=== PATIENT | female | born 1965 | race Hispanic/Latino ===

== ENCOUNTER → 2019-07-20 | Outpatient (CLI) | payer OTHER | END | disposition home or self-care (01) | LOC: RAH 11:21 | PROVIDERS: ATTEND Internal Medicine Geriatric Medicine | DX: Z13.6 Encounter for screening for cardiovascular disorders (principal) | CPT/HCPCS: 75571 ==

== ENCOUNTER 2023-03-13 06:06 | Day surgery (SDC) | payer OTHER, MEDICAID ==
[~2023-03-13] VITALS: Ht 152.4 cm; Wt 49.9 kg
[~2023-03-13 06:06] MED LIST: ALPR2TAB2 PO; CREON12 PO; DICY20TA3 PO; FIORIT PO; HYDR5TAB14 PO; LACO100T2 PO; MELO5CAP3 PO; MIDO5TAB4 PO; OMEP20TA2 PO; OXCA300T28 PO; OXYC15TA2 PO; PANT40TA54 PO; PREG75 PO; TRAZ-185 PO; URSO300C4 PO
[2023-03-13 06:43] VITALS: BP 99/68
[2023-03-13] MEDS ORDERED: 0.9%NACL 1000ML 1,000 ML IV ONE (08:05)
[2023-03-13] MEDS ORDERED: PROPOFOL 10 MG/ML 20ML VIAL IV ONE (08:24)
== END 2023-03-13 09:13 | disposition home or self-care (01) ==
LOC: DAH 06:06 → ENDO 06:06
PROVIDERS: ATTEND Surgery
DX: R13.10 Dysphagia, unspecified (principal); Z20.822 Contact with and (suspected) exposure to COVID-19; K91.1 Postgastric surgery syndromes; K29.70 Gastritis, unspecified, without bleeding; K22.89 Other specified disease of esophagus; D50.9 Iron deficiency anemia, unspecified; R19.7 Diarrhea, unspecified; K86.1 Other chronic pancreatitis; K30 Functional dyspepsia; R63.4 Abnormal weight loss; I25.10 Atherosclerotic heart disease of native coronary artery without angina pectoris; F41.9 Anxiety disorder, unspecified; F32.A Depression, unspecified; M19.90 Unspecified osteoarthritis, unspecified site; I25.2 Old myocardial infarction; F17.200 Nicotine dependence, unspecified, uncomplicated; Z86.73 Personal history of transient ischemic attack (TIA), and cerebral infarction without residual deficits; Z79.899 Other long term (current) drug therapy; Z98.84 Bariatric surgery status; Z88.6 Allergy status to analgesic agent; Z88.8 Allergy status to other drugs, medicaments and biological substances; Z88.3 Allergy status to other anti-infective agents; Z90.49 Acquired absence of other specified parts of digestive tract; Z68.20 Body mass index [BMI] 20.0-20.9, adult
CPT/HCPCS: 87426; 43239; 82948; 88305 ×4; J7030 ×2; J2704; A4620; A4215 ×3; A4223; A4657 ×2; A4222; A4221; A4663; A4606

== ENCOUNTER 2023-09-05 06:39 | Day surgery (SDC) | payer OTHER, MEDICAID ==
[2023-07-26 10:16] VITALS: BP 96/53; PULSE 18; RESP 18
[2023-09-03 11:39] VITALS: BP 110/60; PULSE 66; RESP 17
[2023-09-05] VITALS (11 sets, daily range): BP systolic 85–106; BP diastolic 54–64; PULSE 61–72; RESP 12–15
[~2023-09-05] VITALS: Ht 152.4 cm; Wt 49.9 kg
[~2023-09-05 06:39] MED LIST changes: +HYDR-4419 PO
[2023-09-05] MEDS ORDERED: PROPOFOL 10 MG/ML 20ML VIAL IV ONE ×2 (08:53→09:06)
[2023-09-05] MEDS ORDERED: LIDOCAINE PF 100MG/5ML (2%) SYRINGE 5ML ONE (08:53)
== END 2023-09-05 10:25 | disposition home or self-care (01) ==
LOC: DAH 06:39 → ENDO 06:39
PROVIDERS: ATTEND Surgery
DX: R10.13 Epigastric pain (principal); R13.10 Dysphagia, unspecified; K29.50 Unspecified chronic gastritis without bleeding; K31.89 Other diseases of stomach and duodenum; K22.89 Other specified disease of esophagus; K91.1 Postgastric surgery syndromes; K90.3 Pancreatic steatorrhea; D50.9 Iron deficiency anemia, unspecified; F41.9 Anxiety disorder, unspecified; F32.A Depression, unspecified; R56.9 Unspecified convulsions; E64.0 Sequelae of protein-calorie malnutrition; M19.90 Unspecified osteoarthritis, unspecified site; F17.210 Nicotine dependence, cigarettes, uncomplicated; Z79.01 Long term (current) use of anticoagulants; Z79.899 Other long term (current) drug therapy; Z90.49 Acquired absence of other specified parts of digestive tract; Z98.891 History of uterine scar from previous surgery; Z86.73 Personal history of transient ischemic attack (TIA), and cerebral infarction without residual deficits; Z90.710 Acquired absence of both cervix and uterus; Z98.890 Other specified postprocedural states; Z98.84 Bariatric surgery status
CPT/HCPCS: 43245; 82948 ×2; 43239; J2001; J2704 ×2; A4620; A4215 ×2; A4223; A7002; A4222; A4221; A4663; J7030; A4606; J3490

== ENCOUNTER 2025-08-10 19:00 | Emergency (ER) | payer OTHER, MEDICAID ==
[~2025-08-10] VITALS: Ht 162.6 cm; Wt 65.8 kg
--- NOTE | 2025-08-10 19:26 | ERN ---
ED Note History of Present Illness Stated Complaint: C/O SEIZURE Chief Complaint: Seizure Time Seen by MD: 19:04 Dictation: This is a 60-year-old female who was brought by EMS for an active seizure activity. Patients spouse stated that she has had a history of seizures since age 8 and patient's mother chose to stop all her seizure medications. She was seizure free up to a certain point but then seizures returned somewhere around 2003 this was a time when they were living in [facility]. Patient and spouse moved to [place] to be closer to the patient's parents about 4 years ago. Patient recent last seizure was 2 months ago at home. She [facility] and is currently on Vimpat and oxcarbazepine. The denied any noncompliance. No history of any illicit drugs. No history of fever chills or rigors. Or primary care physician today and received a shot of pain medication. Eventually developed back to back seizures. Upon arrival to the ER patient was having seizures lasting about a minute to 2 minutes. Stat Valium has been given. Keppra 1500 mg IV loading done was marked. Who is recovered quite quickly each time and was refusing intubation initially. After 8 or 9 seizures, I had a very direct conversation with the patient and her spouse and explained to them that there is a very high-risk of sudden respiratory arrest especially with the need for frequent benzodiazepines. He could also result in cardiac arrest. Both of them at that time decided to he has been go ahead with a intubation. Patient was successfully intubated and placed on mechanical ventilator. Please see the procedure note written separately Patient was extremely difficult IV stick and right internal jugular triple-lumen catheter was also placed emergently. Temperature 97.5 pulse 101 respirations 18 blood pressure 122/71 with a pulse oximetry of 100% on room air prior to intubation Her chronic medical problems include history of seizures, history of bariatric surgery in 2013 with a mesh placement and multiple postoperative complications and chronic pain, COPD-patient is an active smoker of cigarettes and uses an inhaler Allergies: Coded Allergies: No Known Drug Allergies (Unverified Allergy, Unknown, 08/10/25) Past Medical History Past Medical History: Hypotension (On midodrine and a vagal stimulator), Seizure Surgical History: Other, Bariatric Surgery Surgical History Other: LEFT-SIDED VAGAL STIMULATOR Family History: Negative Social History: Smokers History: Not Applicable RN Note Reviewed/Agreed w/PFSH: Yes Review of System Dictation Constitutional: Negative for fever,chills, and weight loss Eyes: Negative for injury, pain,redness, and discharge ENT: Negative for injury,pain or swelling Cardiovascular: Negative for chest pain, palpitations, and edema Respiratory: Negative for shortness of breath, cough, and wheezing, Abdomen/GI: Negative for abdominal pain, nausea, vomiting, diarrhea, and constipation Back: Negative for injury and pain : Negative for injury, bleeding and discharge MS/Extremity: Negative for injury and deformity Skin: Negative for rash, and discoloration Neuro: Negative for headache, weakness, numbness, tingling, and positive for back to back seizures Psych: Negative for suicide ideation, homicidal ideation, and hallucinations Initial Vital Sign VS Vital Signs Date Time Temp Pulse Resp B/P (MAP) Pulse Ox O2 Delivery O2 Flow Rate FiO2 08/10/25 19:25 97.5 101 18 122/71 100 Nasal Cannula 10.0 08/10/25 19:37 100 Physical Exam Dictation General: awake, alert, moaning but answering questions appropriately in between the seizures Head/Face: Normocephalic, atraumatic Eyes: PERRL, EOMI, vision at baseline ENT: oral cavity clear, TMs clear, no signs of infection Neck: Trachea midline, supple, no nuchal rigidity Cardiovascular: RRR, normal S1/S2, No MRGs, no JVD Respiratory: CTAB, no respiratory distress, No rales or wheezes Abdomen: Soft, non-tender, non-distended, normal bowel sounds, no guarding or rebound. Skin: Warm, dry, normal turgor, no rash MS/Extremity: Pulses equal, no cyanosis, neurovascular intact, FROM Neuro: COAx4, GCS 15, strength 5/5, CN 2-12 intact, normal cerebellar exam, Extremities-trace edema without any palpable cords, Homans sign is negative Results (Laboratory/Radiology) Laboratory/Radiology Laboratory Tests Test 08/10/25 20:18 08/10/25 20:25 08/10/25 21:03 Blood Gas Specimen Type Arterial Arterial Blood pH 7.475 (7.350-7.450) Arterial Blood Partial Pressure CO2 27 mmHg (32-45) L Arterial Blood Partial Pressure O2 > 500.0 mmHg (83.0-108.0) Arterial Blood HCO3 19.1 mmol/L (21.0-28.0) L Arterial Blood Oxygen Saturation 99.1 % (94.0-98.0) H Arterial Blood Base Excess -3.1 mmol/L (-2.0-3.0) L Hemoglobin (Blood Gas) 12.5 g/dL (12.0-16.0) Sodium (Blood Gas) 141 MMOL/L (136-145) Bedside Potassium (Blood Gas) 3.4 MMOL/L (3.4-4.5) Bedside Chloride (Blood Gas) 108 MMOL/L (98-107) H Bedside Glucose (Blood Gas) 84 MG/DL (65-95) Bedside Ionized Calcium (Blood Gas) 1.10 MMOL/L (1.15-1.33) L Bedside Lactic Acid (Blood Gas) 3.73 MMOL/L (0.36-0.75) *H Blood Gas Temperature 37.0 CELSIUS (35.5-37.0) Blood Gas Respiration Rate 16.0 min. Blood Gas Vent Mode AC (ROOM AIR) FiO2 100.0 % Blood Gas Tidal Volume 450 ml Blood Gas PEEP 5 cm H2O Blood Gas Specimen Comment RR White Blood Count 5.6 K/uL (4.8-10.8) Red Blood Count 3.52 MIL/uL (4.00-5.50) L Hemoglobin 11.9 g/dL (12.0-16.0) L Hematocrit 35.2 % (36-48) L Mean Corpuscular Volume 100.0 fL (79-99) H Mean Corpuscular Hemoglobin 33.8 pg (27.0-33.0) H Mean Corpuscular Hemoglobin Concent 33.8 g/dL (32.0-36.0) Red Cell Distribution Width 12.0 % (11.0-15.5) Platelet Count 188 K/uL (130-400) Mean Platelet Volume 9.4 fL (7.5-10.5) Immature Granulocyte % (Auto) 0.2 % (0-1) Neutrophils (%) (Auto) 49.6 % (40.0-77.0) Lymphocytes (%) (Auto) 39.5 % (21.0-51.0) Monocytes (%) (Auto) 9.8 % (3.0-13.0) Eosinophils (%) (Auto) 0.5 % (0.0-8.0) Basophils (%) (Auto) 0.4 % (0.0-5.0) Neutrophils # (Auto) 2.8 K/uL (1.8-7.7) Lymphocytes # (Auto) 2.2 K/uL (1.0-4.8) Monocytes # (Auto) 0.6 K/uL (0.1-1.0) Eosinophils # (Auto) 0.03 K/uL (0.00-0.70) Basophils # (Auto) 0.02 K/uL (0.00-0.20) Absolute Immature Granulocyte (auto 0.01 K/uL (0-1) Nucleated Red Blood Cells 0.0 % (0.0-0.19) Prothrombin Time 11.6 SEC (9.6-11.6) Prothromb Time International Ratio 1.11 (0.85-1.15) Activated Partial Thromboplast Time 25.9 SEC (26.3-35.5) L Sodium Level 144 mmol/L (136-145) Potassium Level 3.2 mmol/L (3.5-5.1) L Chloride Level 107 mmol/L (101-111) Carbon Dioxide Level 22 mmol/L (21-32) Blood Urea Nitrogen 16 mg/dL (7-18) Creatinine 0.8 mg/dL (0.5-1.0) Glomerular Filtration Rate Calc 84 mL/min (>90) Random Glucose 80 mg/dL (70-105) Whole Blood Ketones Quantitative < 0.1 mmol/L (0.0-0.6) Total Calcium 8.2 mg/dL (8.5-10.1) L Total Bilirubin 0.3 mg/dL (0.2-1.0) Aspartate Amino Transf (AST/SGOT) 34 U/L (10-37) Alanine Aminotransferase (ALT/SGPT) 35 U/L (12-78) Alkaline Phosphatase 102 U/L (50-136) Ammonia < 10 umol/L (11-32) L Total Creatine Kinase 156 U/L (21-232) Troponin I High Sensitivity 5.0 ng/L (4-50) Total Protein 6.2 g/dL (6.0-8.3) Albumin 3.3 g/dL (3.5-5.0) L Acetaminophen Level < 1 mcg/mL (10-30) L Serum Alcohol < 3 mg/dL (0-10) Urine Color YELLOW (YELLOW) Urine Appearance CLEAR (CLEAR) Urine pH 5.5 (5.0-8.0) Urine Specific [place] 1.016 (1.001-1.031) Urine Protein NEGATIVE mg/dL (NEGATIVE) Urine Glucose (UA) NEGATIVE mg/dL (NEGATIVE) Urine Ketones NEGATIVE mg/dL (NEGATIVE) Urine Occult Blood NEGATIVE (NEGATIVE) Urine Nitrate NEGATIVE (NEGATIVE) Urine Bilirubin NEGATIVE mg/dL (NEGATIVE) Urine Urobilinogen 0.2 mg/dL (0.2-1.0) Urine Leukocyte Esterase NEGATIVE Anjana/uL Labs Reviewed?: Yes EKG Comment: 12 lead EKG done on 08/10/2025 at 8:22 p.m. showed a heart rate of 91, NV interval 127, QRS duration 86, QT/QTC 379/465 Impression normal sinus rhythm with nonspecific ST-T changes no acute ST-T elevations or deep ST depressions noted. EKG rhythm strip shows a normal sinus rhythm with a nonspecific ST-T changes Interpreted by ER MD Dr. Grimes ED Course ED Course Orders Procedure Category Date Status Time Levetiracetam 500 PHA 08/10/25 Complete Mg/5 Ml Sd V (Keppra 5 19:14 Diazepam 5 Mg/Ml 2 Ml PHA 08/10/25 Complete Syg (Valium 5 Mg/M 19:14 Chest 1vw RAD 08/10/25 Resulted 19:17 Cbc With Differential LAB 08/10/25 Complete 19:20 Comprehensive LAB 08/10/25 Complete Metabolic Panel 19:20 Pt And Ptt LAB 08/10/25 Complete 19:20 Ct Head/Brain W/O CT 08/10/25 Resulted Contrast 19:20 Diazepam 5 Mg/Ml 2 Ml PHA 08/10/25 Complete Syg (Valium 5 Mg/M 19:30 Levetiracetam 500 PHA 08/10/25 Complete Mg/5 Ml Sd V (Keppra 5 19:30 Arterial Blood Gas RT 08/10/25 Transmitted 19:22 Ketone Blood LAB 08/10/25 Complete Quantitative 19:22 Urinalysis Profile LAB 08/10/25 Complete 19:22 12 Lead Ekg Tracing- EKG 08/10/25 Complete Technical 19:24 Levetiracetam 500 PHA 08/10/25 Complete Mg/5 Ml Sd V (Keppra 5 19:30 Fentanyl 1000mcg+Ns PHA 08/10/25 Complete 100ml (Fentanyl 1000 19:51 Propofol 1000 Mg/100 PHA 08/10/25 Complete Ml (Diprivan 1000mg 19:52 Arterial Blood Gas LAB 08/10/25 Complete Arterial + 20:18 Acetaminophen LAB 08/10/25 Complete 19:20 Alcohol, Blood LAB 08/10/25 Complete 19:20 Ammonia LAB 08/10/25 Complete 19:20 Cardiac Panel LAB 08/10/25 Complete 19:20 Ventilator Settings RT 08/10/25 Transmitted 21:58 Arterial Blood Gas + RT 08/10/25 Transmitted 21:58 0.9%Nacl 1000ml (Ns PHA 08/10/25 Complete 1000ml) 22:30 Midodrine Hcl 5 Mg PHA 08/10/25 Complete Tablet (Proamatine 5 22:30 Norepinephrin 4mg/Ns PHA 08/10/25 In Process 250ml (Levophed 4mg 22:30 Norepinephrin 4mg/Ns PHA 08/10/25 Complete 250ml (Levophed 4mg 22:18 Current Medications Medications (Trade) Dose Ordered Sig/Joaquín Route PRN Reason Start Time Stop Time Status Last Admin Dose Admin Diazepam (VALium 5 MG/ML 2 ML SYG) 5 mg ONCE ONCE IVP 08/10/25 19:30 08/10/25 19:31 DC 08/10/25 19:30 Diazepam (VALium 5 MG/ML 2 ML SYG) 10 mg STK-MED ONCE .ROUTE 08/10/25 19:14 08/10/25 19:14 DC 08/10/25 19:26 Fentanyl Citrate 100 ml @ As Directed STK-MED ONCE IV 08/10/25 19:51 08/10/25 19:52 DC 08/10/25 21:25 Levetiracetam (kepPRA 500 MG/5 ML SD VIAL) 500 mg STK-MED ONCE IV 08/10/25 19:14 08/10/25 19:14 DC 08/10/25 19:27 Levetiracetam (kepPRA 500 MG/5 ML SD VIAL) 1,500 mg ONCE IV 08/10/25 19:30 08/10/25 19:29 DC Levetiracetam 1500 mg/Sodium Chloride 100 ml @ 400 mls/hr ONCE ONCE IV 08/10/25 19:30 08/10/25 19:44 DC Midodrine (PROAMatine 5 MG TABLET) 10 mg ONCE ONCE NG 08/10/25 22:30 08/10/25 22:31 DC Norepinephrine 250 ml @ As Directed STK-MED ONCE IV 08/10/25 22:18 08/10/25 22:18 DC Norepinephrine 250 ml @ 0 mls/hr PROTOCOL IV 08/10/25 22:30 09/09/25 22:29 08/10/25 22:24 Propofol 100 ml @ As Directed STK-MED ONCE IV 08/10/25 19:52 08/10/25 19:52 DC 08/10/25 21:28 Sodium Chloride 1,000 ml @ 0 mls/hr ONCE ONCE IV 08/10/25 22:30 08/10/25 22:31 DC 08/10/25 22:23 Vital Signs Date Time Temp Pulse Resp B/P (MAP) Pulse Ox O2 Delivery O2 Flow Rate FiO2 08/10/25 22:33 97.5 64 14 128/72 100 Ventilator+ 40 08/10/25 22:24 89/50 08/10/25 21:30 97.5 70 14 89/55 100 Ventilator+ 40 08/10/25 21:00 97.5 75 14 92/57 100 Ventilator+ 40 08/10/25 20:30 97.5 94 14 104/58 100 Ventilator+ 40 08/10/25 20:10 78 100 08/10/25 20:00 97.5 112 24 96/58 100 Ventilator+ 60 08/10/25 19:37 97.5 94 19 97/58 100 Non-Rebreather+ 15 100 08/10/25 19:25 97.5 101 18 122/71 100 Nasal Cannula 10.0 We will perform diagnostic labs, advanced imaging and administer medications according to the patient's complaint. Once the results are available, will review and personally interpreted the labs to rule out any acute life- threatening emergency the trach require immediate intervention and treatment. I will then re-evaluate the patient after treatment and diagnostic exams have return to determine whether the patient requires any further testing, can safely be discharged home or need further admission to hospital for additional treatment and evaluation. 9:15 p.m. transfer out of [facility] initiated as there is no availability of neurologist and continuous EEG services. 9:30 p.m. I had an extensive discussion with neuro brush filler hand , who accepted the patient in transfer. Please note that prior to transfer as patient has a known history of hypotension and with propofol potential for hypotension worsening, patient was initiated on low-dose Levophed. Medical Decision Making MDM Differential diagnosis: Status epilepticus,--maybe secondary to sleep deprivation, dehydration, low-grade infection or possibly medications triggering her seizures or reducing the seizure threshold This is a 60-year-old female who was brought by EMS for an active seizure activity. Patients spouse stated that she has had a history of seizures since age 8 and patient's mother chose to stop all her seizure medications. She was seizure free up to a certain point but then seizures returned somewhere around 2003 this was a time when they were living in [facility]. Patient and spouse moved to [place] to be closer to the patient's parents about 4 years ago. Patient recent last seizure was 2 months ago at home. She sees neurologist, Dr. Carolyn Mello [facility] and is currently on Vimpat and oxcarbazepine. The denied any noncompliance. No history of any illicit drugs. No history of fever chills or rigors. Or primary care physician today and received a shot of pain medication. Eventually developed back to back seizures. Upon arrival to the ER patient was having seizures lasting about a minute to 2 minutes. Stat Valium has been given. Keppra 1500 mg IV loading done was marked. Who is recovered quite quickly each time and was refusing intubation initially. After 8 or 9 seizures, I had a very direct conversation with the cuauhtemoc urrutia and her spouse and explained to them that there is a very high-risk of sudden respiratory arrest especially with the need for frequent benzodiazepines. He could also result in cardiac arrest. Both of them at that time decided to he has been go ahead with a intubation. Patient was successfully intubated and placed on mechanical ventilator. Please see the procedure note written separately Patient was extremely difficult IV stick and right internal jugular triple-lumen catheter was also placed emergently. Temperature 97.5 pulse 101 respirations 18 blood pressure 122/71 with a pulse oximetry of 100% on room air prior to intubation Her chronic medical problems include history of seizures, history of bariatric surgery in 2013 with a mesh placement and multiple postoperative complications and chronic pain, COPD-patient is an active smoker of cigarettes and uses an inhaler 9:00 p.m. labs reviewed CBC showed a white count of 5.6 hemoglobin 11.9 platelets 188. BNP 7 showed a potassium of 3.2 BUN and creatinine are 16 and 0.8 glucose of 80. Rationale: Tests considered and ordered secondary to shared decision making include: labs, ECG and radiology Previous outside records reviewed: Old ER visits. Risk of complication and/or morbidity or mortality of patient management: None Medications-Per medication reconciliation Need for hospitalization: Patient does meet criteria for hospitalization. Need for emergency major/minor surgery: No There are no social concerns with this patient. Prescription drug management Prescriptions will include symptomatic care Patient's prior external medical records from other ER visits were reviewed by me as indicated. Prior testing and results from previous visits were reviewed. Prior tests were taken into account with medical decision making and resource utilization, independent historian/historians were used to obtain complete medical history. I independently interpreted the test that were performed, results were reviewed by me and considered findings on radiology if ordered. Medical management and examination interpretation discussions were had by me with other qualified healthcare professionals as indicated for the patient's care. Procedure Central Line Lumen: triple Central Line Procedure: no betadine prep Central Line Postion: internal jugular (R) anesthesia: Lidocaine Complications: none Central Line Post Position: sutured, good blood return, position confirmed w/ CXR Progress Procedure note- right internal jugular triple-lumen catheter placement- 8.10 pm Indication-status epilepticus respiratory failure on mechanical ventilator Performing physician-Dr. Grimes Premedication and anesthesia- 1% lidocaine local Procedure-procedure was deemed emergent and verbal consent was obtained from the patient's at bedside. He also gave an informed consent. The procedure, risks benefits alternatives and outcomes were extensively discussed with the patient's spouse and he verbalized full understanding After an appropriate time-out and pause, patient's right neck area was prepped and draped in a sterile fashion using modified Seldinger technique right internal jugular vein was cannulated and a guidewire was advanced. Subsequently using the dilator and skin incision at the site of insertion a tract was created and a triple-lumen catheter was advanced over the guidewire with removal of the guidewire. Excellent blood return from all 3 ports was noted. Ports were flushed and the catheter was sutured to skin in place. The antibiotic disc was placed at the insertion site and dressing was applied. No immediate complications. Patient tolerated the procedure extremely well Postprocedure chest x-ray shows appropriate placement of the tip of the triple- lumen catheter at the SVC junction. No pneumothorax Tube Size (cm): 7.5 Breath Sounds after Intubation: equal Intubation Complications: no complications Post Intubation Xray: Yes Progress Procedure note-endotracheal intubation 7.50 pm Indication for the procedure-status epilepticus he Premedication and anesthesia-etomidate 20 mg IV, rocuronium 50 mg IV. Patient's heart rate blood pressure pulse oximetry and respiratory rate were continuously monitored before during and after the procedure. Performing physician-Peggy MORGANCP Procedure-for obtaining an informed consent from the patient's and patient and after appropriate time-out and pause, 7.5 ET tube was advanced into the trachea after well visualization of the vocal cords under glide scope MAC 3 blade guidance. Bedside confirmation was done with good breath sounds bilaterally to auscultation and excellent color change on the capnometer. ET tube was secured in place at 25 cm at the lip Postprocedure chest x-ray-ET tube placement was confirmed and was or pneumo thorax Recommendations-patient placed on mechanical ventilator-discussed settings with the RT Problem List Problem List: (1) Status epilepticus, generalized convulsive (2) Acute neuromuscular respiratory failure (3) Endotracheally intubated Critical Care Note Critical Time: 45 minutes Comment(s) Life-threatening illness; status epilepticus respiratory failure requiring mechanical ventilation Risk of morbidity mortality-high Complexity of medical decision making-high (X) high probability of sudden clinically significant deterioration in the patient's condition required the highest level of my preparedness to intervene urgently. I provided critical care services requiring my direct and personal management as noted below; (x) chart data review (x) reviewing nurse's notes and/charts (x) documentation time (x) consultation collaboration on findings and therapy options (x) medication orders and management (x) re-evaluations (x) care, transfer of care, and discharge plans (x) ordering and interpreting studies (x) ordering and reviewing labs (x) obtaining necessary history from family, EMS, penitentiary, private MD, surrogate decision makers because patient was unable to give history due to limitations in the mental status (x) aggregate critical care time was (45 ) minutes. This includes only time during which I was engaged in work directly related to the patient's care as described above whether at the bedside or elsewhere in the ER while the patient was critical. My time did not include minutes spent treating any other patients simultaneously or on activities that did not directly contribute to the patient's treatment. It did not include time spent performing other reported procedures or services of residents if any. Peggy Grimes MDFCCP DX & DISP Disposition: Transfer Decision to Admit Time: 20:20 Departure Impression: Primary Impression: Status epilepticus, generalized convulsive Additional Impressions: Acute neuromuscular respiratory failure, Endotracheally intubated Condition: Stable Additional Instructions: The patient has been informed about all the diagnostic tests and procedures carried out in the emergency room today and has confirmed understanding of the results. Patient will be transferred to a facility that provides a higher level of care since such services are not accessible locally or within our immediate community. The patient is alert oriented and not experiencing any acute distress. There are no signs of sepsis and patient's hemodynamic status is stable at the moment. Medically, the patient is considered stable for transfer Patient will be transferred to neuro intensive care unit to [facility]. Referrals: SELF,REFERRAL (PCP) PEGGY GRIMES MD Aug 10, 2025 19:26
[2025-08-10 20:10] VITALS: PULSE 78; O2SAT 100
[2025-08-10 20:20] LABS: ABG BASE EXCESS -3.1 mmol/L (-2.0-3.0); ABG HCO3 19.1 mmol/L (21.0-28.0); ABG OXYGEN SATURATION 99.1 % (94.0-98.0); ABG PCO2 27 mmHg (32-45); ABG PH 7.475 (7.350-7.450); CARBON MONOXIDE 0.3 % (0.5-1.5); DEVICE COMMENT RR; PO2, ARTERIAL BG > 500.0 mmHg (83.0-108.0); TEMPERATURE, CELSIUS BG 37.0 CELSIUS (35.5-37.0); VENT MODE, BG AC (ROOM AIR)
--- NOTE | 2025-08-10 20:27 | EKG ---
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
[2025-08-10 20:34] LABS: IMMATURE GRANULOCYTE ABSOLUTE 0.01 K/uL (0-1); NUCLEATED RED BLOOD CELLS 0.0 % (0.0-0.19); PLATELET COUNT (AUTO) 188 K/uL (130-400); RED BLOOD CELL COUNT(AUTO) 3.52 MIL/uL (4.00-5.50); RED CELL DISTRIBUTION WIDTH 12.0 % (11.0-15.5); WHITE BLOOD COUNT (AUTO) 5.6 K/uL (4.8-10.8)
--- NOTE | 2025-08-10 20:39 | NUR ---
TAKEN TO CT SCAN
[2025-08-10 20:44] LABS: INR 1.11 (0.85-1.15)
[2025-08-10 20:49] LABS: CREATININE 0.8 mg/dL (0.5-1.0); GLOMERULAR FILTR. RATE CALC 84 mL/min (>90); GLUCOSE,RANDOM 80 mg/dL (70-105); SODIUM SERUM 144 mmol/L (136-145); UREA NITROGEN, BLOOD 16 mg/dL (7-18)
[2025-08-10 20:59] LABS: ASPARTATE AMINOTRANSFERASE 34 U/L (10-37); CREATINE KINASE, TOTAL 156 U/L (21-232); TOTAL PROTEIN, SERUM 6.2 g/dL (6.0-8.3)
[2025-08-10 21:00] LABS: ALCOHOL, BLOOD < 3 mg/dL (0-10)
[2025-08-10 21:16] LABS: APPEARANCE,URINE CLEAR (CLEAR); GLUCOSE, URINE (UA) NEGATIVE (NEGATIVE); LEUKOCYTE ESTERASE ,URINE NEGATIVE Leu/uL (NEGATIVE); NITRATE,URINE NEGATIVE (NEGATIVE); OCCULT BLOOD,URINE NEGATIVE (NEGATIVE)
[2025-08-10 21:19] LABS: ADD UA MICROSCOPIC NO
--- NOTE | 2025-08-10 21:23 | HMCIMG ---
EXAM: CR Chest, 1 view CLINICAL HISTORY: Status postintubation. COMPARISON: None provided. FINDINGS: The endotracheal tube tip is 3.2 cm above the frandy. The gastric tube tip is below the diaphragm and not completely included in this image. The right transjugular central venous catheter tip overlies the superior vena cava. The cardiac size is within normal limits. No acute infiltrate, effusion, or pneumothorax. An electronic device overlies the left upper thorax, its leads are around the left side of the neck. No acute osseous abnormality. IMPRESSION: The endotracheal tube tip is 3.2 cm above the frandy. The gastric tube tip is below the diaphragm and not completely included in this image. The right transjugular central venous catheter tip overlies the superior vena cava. No acute cardiopulmonary process is evident. /Mary
[2025-08-10] MEDS: LEVETIRACETAM 1,500MG @ 400 MLS/HR(100ml) IV ONE (21:24)
--- NOTE | 2025-08-10 21:27 | HMCIMG ---
EXAM: CT Head Without IV Contrast. CLINICAL HISTORY: Patient presents with seizures for evaluation. TECHNIQUE: Axial computed tomography images of the head and brain were obtained without intravenous contrast. COMPARISON: None provided. FINDINGS: BRAIN: No acute intracranial hemorrhage, mass lesion, or territorial infarct. Mild bilateral periventricular white matter hypodensities suggestive of chronic small vessel ischemic changes. No midline shift or extra-axial collection. VENTRICLES: Normal in size and configuration without hydrocephalus. ORBITS: Unremarkable. SINUSES AND MASTOIDS: Paranasal sinuses and mastoid air cells are clear. BONES: No calvarial or skull base fracture. SOFT TISSUES: Ryle???s tube in situ. IMPRESSION: No acute intracranial abnormality. Mild bilateral periventricular white matter chronic small vessel ischemic changes. Recommend follow-up MRI brain with seizure protocol for further evaluation. /Saxe
--- NOTE | 2025-08-10 22:15 | NUR ---
REPORT GIVEN TO KAILASH WOODY AT [facility], ALL QUESTIONS ANSWERED AT THIS TIME
[2025-08-10] MEDS: NOREPINEPHRIN 4MG/NS 250ML 250 ML IV ONE (22:22)
[2025-08-10] MEDS: 0.9%NACL 1000ML 1,000 ML IV ONE (22:23)
[2025-08-10] MEDS: NOREPINEPHRIN 4MG/NS 250ML 250 ML IV SCH (22:24)
[2025-08-10 22:33] VITALS: BP 128/72; PULSE 64; RESP 14; TEMP 97.5; O2SAT 100
--- NOTE | 2025-08-10 22:47 | NUR ---
[facility] AT BEDSIDE, REPORT GIVEN TO [facility]AMED[facility] JONATHAN. ALL QUESTIONS ANSWERED AT THIS TIME. [facility] EXPECTING PT ARRIVAL TO THE UNIT.
== END 2025-08-10 22:46 | disposition short-term general hospital (02) ==
LOC: MERGE 19:00 → EDH 19:00
DX: J96.00 Acute respiratory failure, unspecified whether with hypoxia or hypercapnia (principal); G40.401 Other generalized epilepsy and epileptic syndromes, not intractable, with status epilepticus; F17.200 Nicotine dependence, unspecified, uncomplicated; Z79.01 Long term (current) use of anticoagulants
CPT/HCPCS: 36556; 82947; 82550; 84484; 80053; 82803; 82140; 85025; 85610; 85730; 83605; 82010; 81003; 36415; 70450; 99291; 31500; 82435; 84132; 84295; 85018; 71045; 96374; 96375; 93005; 36600; J3490 ×3; J3010; J1953 ×2; J3360; J2704; 94002